=== PATIENT | female | born 1960 | race Caucasian/White ===

== ENCOUNTER 2019-09-18 11:35 | Emergency (ER) | payer MEDICARE ==
[~2019-09-18] VITALS: Ht 160 cm; Wt 56.8 kg
[2019-09-18 11:36] VITALS: BP 115/64
[2019-09-18] MEDS ORDERED: AZIT-72 PO (12:39)
[2019-09-18] MEDS ORDERED: ROBCFL PO (12:39)
[2019-09-18] MEDS ORDERED: PRED20TA PO (12:39)
== END 2019-09-18 12:47 | disposition home or self-care (01) ==
LOC: ER 11:35
DX: J02.9 Acute pharyngitis, unspecified (principal); Z88.8 Allergy status to other drugs, medicaments and biological substances; Z88.5 Allergy status to narcotic agent; Z79.899 Other long term (current) drug therapy
CPT/HCPCS: 71045; 99283